=== PATIENT | female | born 1945 | race Caucasian/White ===

== ENCOUNTER 2022-07-20 19:40 | Emergency (ER) | payer OTHER ==
[~2022-07-20] VITALS: Ht 167.6 cm; Wt 69.9 kg
--- NOTE | 2022-07-20 19:55 | NUR ---
SWALLOWING TEST DONE AND STROKE EVAL. NIHSS SCORE 0. PATIENT HAS NO ISSUES WITH SWALLOWING. DR FREED MADE AWARE
--- NOTE | 2022-07-20 20:02 | NUR ---
FARIDA (DAUGHTER) [phone] ARNULFO (GRANDDAUGHTER) [phone]
--- NOTE | 2022-07-20 20:03 | NUR ---
REPORT GIVEN TO NURSE PASACL FOR KIARA
--- NOTE | 2022-07-20 20:13 | NUR ---
CLAUDIO FROM HOME FOR GEN BODY WEAKNESS AND ELEVATED BP ( 172/104). CURRENT BP 155/117 mmHg. PATIENT HAS HX OF HTN. TOOK AMLODIPINE 50mg tab IN AM. PLACED COMFORTABLY IN BED. ATTACHED TO MONITOR. VITALS CHECKED.
--- NOTE | 2022-07-20 20:32 | NUR ---
CEMETERY KEEPER AT BEDSIDE.
[2022-07-20 21:07] LABS: BASOPHILS % (AUTO) 0.3 % (0.0-2.0); EOSINOPHILS % (AUTO) 0.8 % (0.0-6.0); HEMATOCRIT 42 % (33-45); HEMOGLOBIN 13.9 g/dL (11.5-14.8); LYMPHOCYTES # (AUTO) 2.2 K/uL (0.8-4.8); LYMPHOCYTES % (AUTO) 35.1 % (20.0-44.0); MEAN CORPUSCULAR HGB CONC 33 g/dl (31.0-36.0); MEAN CORPUSCULAR VOLUME 91 fL (82-100); MONOCYTES # (AUTO) 0.4 K/uL (0.1-1.30); MONOCYTES % (AUTO) 5.8 % (2.0-12.0); NEUTROPHILS # (AUTO) 3.7 K/uL (1.8-8.9); PLATELET COUNT (AUTO) 191 K/uL (150-450); RED BLOOD CELL COUNT(AUTO) 4.57 MIL/uL (4.0-5.2); WHITE BLOOD COUNT (AUTO) 6.3 K/uL (4.3-11.0)
[2022-07-20 21:28] LABS: ALANINE AMINOTRANSFERASE 72 U/L (12-78); ALBUMIN 4.2 g/dL (3.4-5.0); ALKALINE PHOSPHATASE 73 U/L (46-116); ASPARTATE AMINOTRANSFERASE 36 U/L (15-37); BILIRUBIN,DIRECT 0.1 mg/dL (0.0-0.2); BILIRUBIN,TOTAL 0.7 mg/dL (0.2-1.0); CALCIUM, SERUM 9.1 mg/dL (8.5-10.1); CARBON DIOXIDE 26 mmol/L (21-32); CHLORIDE 103 mmol/L (98-107); CREATININE 1.5 mg/dL (0.6-1.3); POTASSIUM 4.3 mmol/L (3.5-5.1); SODIUM SERUM 141 mmol/L (136-145); TOTAL PROTEIN, SERUM 7.9 g/dL (6.4-8.2); UREA NITROGEN, BLOOD 26 mg/dL (7-18)
[2022-07-20 21:32] LABS: MAGNESIUM 2.2 mg/dL (1.8-2.4)
[2022-07-20 21:52] LABS: GLUCOSE 115 mg/dL (74-106)
--- NOTE | 2022-07-20 21:57 | NUR ---
Patient discharged to home in stable condition. Written and verbal after care instructions given. Patient verbalizes understanding of instruction.
[2022-07-20 21:58] VITALS: BP 148/97
== END 2022-07-20 21:58 | disposition home or self-care (01) ==
LOC: ER 19:48
DX: R53.1 Weakness (principal); I10 Essential (primary) hypertension; E11.9 Type 2 diabetes mellitus without complications
CPT/HCPCS: 36415; 80048-TC; 80076-TC; 83735-TC; 83880; 84443-TC; 84484-TC; 85025-TC